=== PATIENT | female | born 1970 | race Caucasian/White ===

== ENCOUNTER 2021-03-26 23:46 | Emergency (ER) | payer SELFPAY ==
[~2021-03-26] VITALS: Ht 170.2 cm; Wt 81.6 kg
[~2021-03-26 23:46] MED LIST: ASPI81CT33 PO; CARI350T PO; IBUP-1801 PO; IBUP-44; [UNRECOGNIZED DRUG - CODE] PO
[2021-03-26 23:54] VITALS: BP 129/89
[2021-03-26] MEDS ORDERED: IBUPROFEN 600 MG TAB PO ONE (23:55)
[2021-03-26] MEDS ORDERED: NAPR-54 PO (23:59)
[2021-03-27 00:03] VITALS: BP 129/89
== END 2021-03-27 00:03 | disposition home or self-care (01) ==
LOC: MED 23:46
DX: S01.01XA Laceration without foreign body of scalp, initial encounter (principal); J45.909 Unspecified asthma, uncomplicated; Z98.890 Other specified postprocedural states; Z88.5 Allergy status to narcotic agent; Z79.899 Other long term (current) drug therapy; W20.8XXA Other cause of strike by thrown, projected or falling object, initial encounter; Y93.89 Activity, other specified; Y92.89 Other specified places as the place of occurrence of the external cause; Y99.8 Other external cause status
CPT/HCPCS: 12001; 99282